=== PATIENT | male | born 1975 | race American Indian/Alaskan Native ===

== ENCOUNTER 2017-06-12 11:19 | Day surgery (SDC) | payer MEDICAID ==
[2017-04-23 11:34] VITALS: BMI 28.7
[2017-06-12] MEDS ORDERED: ceFAZolin IV 1 gm in Dextrose 2 GM/100 ML BAG IVPB ONE (12:48)
[2017-06-12] MEDS ORDERED: Lidocaine Hydrochloride 0 ML INJ ONE (12:49)
[2017-06-12] MEDS ORDERED: Midazolam 2 MG/2 ML VIAL ONE (12:49)
[2017-06-12] MEDS ORDERED: Propofol 10 mg/ml Inj (20 ML) ONE (12:49)
[2017-06-12] MEDS ORDERED: Bupivacaine 0.25% Inj(30mL) ONE (12:49)
[2017-06-12] MEDS ORDERED: Succinylcholine Chloride 20 mg/ml Syr (5 ml) IV ONE (14:01)
[2017-06-12] MEDS ORDERED: Oxycodone/Acetaminophen 5/325 mg Tab PO PRN (14:43)
--- NOTE | 2017-06-12 14:43 | PCM.SURG1 ---
Surgeon's Initial Post Op Note - Surgeon's Notes Surgeon: Dr. Campos Ict Business Development Manager: Edu PGY1 Type of Anesthesia: General LMA Pre-Operative Diagnosis: Right Inguinal Hernia Operative Findings: see operative report Post-Operative Diagnosis: same Operation Performed: Right inguinal hernia repair with mesh Specimen/Specimens Removed: Cord lipoma Estimated Blood Loss: EBL {In ML}: 5 Blood Products Given: N/A Drains Used: No Drains Post-Op Condition: Good Date of Surgery/Procedure: 06/12/17 Time of Surgery/Procedure: 14:43
[2017-06-12] MEDS ORDERED: HYDROmorphone 0.5 mg/0.5 ml ISec IVP PRN (14:50)
[2017-06-12 15:04] VITALS: O2SAT 100
[2017-06-12 18:23] VITALS: BP 118/70; PULSE 74; RESP 18; TEMP 98
--- NOTE | 2017-06-14 23:21 | OP ---
PROCEDURE DATE: 06/12/2017 SURGEON: Silvia Campos MD METER READER: Dr. Sorensen. ANESTHESIA: General. PREOPERATIVE DIAGNOSIS: Right inguinal hernia. POSTOPERATIVE DIAGNOSIS: Right inguinal hernia. PROCEDURE: Right inguinal hernia repair with mesh. DESCRIPTION OF OPERATION: With the patient in the supine position under adequate general anesthesia, the right groin was prepped and draped in the usual sterile manner. Transverse incision was made in the right upper groin crease, taken down though the subcutaneous tissue. The external oblique aponeurosis was identified and a fatty bulge was noted protruding from the external inguinal ring. The aponeurosis was incised and opened from the external inguinal ring to the internal inguinal ring. The spermatic cord was identified and dissected as it passed over the pubic tubercle. It was then elevated over a Odell drain. 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 The remainder of the herniation was medial to the spermatic cord structures and weakness in the medial inguinal cord and this was freed completely from the overlying cord structures and reduced beneath the transversalis floor level and a size large ProLoop plug was positioned well beneath the floor, and also medial to the spermatic cord structures and sutured beneath the transversalis and shelving edge using interrupted sutures of 2-0 Prolene. A suture of 2-0 Prolene was then placed at the pubic tubercle and used to position the flap mesh portion of the Prolene Hernia System to cover the most medial portion of the inguinal floor. The mesh was positioned beneath the cord and sutured inferiorly to the shelving edge of the inguinal ligament and superiorly to the transversalis fascia, incorporating the previously placed sutures at the internal ring and supplementing as needed with the interrupted 2-0 Prolene sutures. The mesh was patino holed and approximated around the internal ring and tacked down to the fascia lateral to the internal ring as well. When this had been completed, the external oblique wire was closed with running suture of 0 Vicryl, subcutaneous tissues were approximated with a few 3-0 Vicryl interrupted sutures and closure was performed with 4-0 Monocryl subcuticular sutures and Steri-Strips. Dry sterile dressing was applied. The patient tolerated the procedure well and transferred to recovery room in stable condition. Estimated blood loss for the procedure was 5 mL. Silvia Campos MD
== END 2017-06-12 18:35 | disposition home or self-care (01) ==
LOC: C.SDS 11:19
PROVIDERS: ATTEND Specialist
DX: K40.90 Unilateral inguinal hernia, without obstruction or gangrene, not specified as recurrent (principal); D17.6 Benign lipomatous neoplasm of spermatic cord
CPT/HCPCS: 49505; 55559; 88304; C1781; J0690; J1170; J1885; J2001; J2250; J2405; J2704; J3010; J7120